=== PATIENT | male | born 1990 | race Caucasian/White ===

== ENCOUNTER 2018-02-03 18:56 | Emergency (ER) | payer MEDICAID ==
[~2018-02-03] VITALS: Ht 180.3 cm; Wt 63.5 kg
[2018-02-03 19:29] VITALS: BP 126/81
== END 2018-02-03 20:48 | disposition home or self-care (01) ==
LOC: ED 18:56
DX: K12.0 Recurrent oral aphthae (principal); K08.89 Other specified disorders of teeth and supporting structures

== ENCOUNTER 2018-03-29 01:58 | Emergency (ER) | payer MEDICAID ==
[~2018-03-29] VITALS: Ht 180.3 cm; Wt 64.1 kg
[2018-03-29 02:05] VITALS: Ht 180.3 cm; Wt 64.1 kg
[2018-03-29 06:47] VITALS: BP 119/56
== END 2018-03-29 08:40 | disposition home or self-care (01) ==
LOC: ED 01:58
DX: S01.511A Laceration without foreign body of lip, initial encounter (principal); Y04.8XXA Assault by other bodily force, initial encounter; Y93.89 Activity, other specified; Y92.89 Other specified places as the place of occurrence of the external cause; Y99.8 Other external cause status
CPT/HCPCS: 90715; J2001

== ENCOUNTER 2018-03-31 17:53 | Emergency (ER) | payer MEDICAID ==
[~2018-03-31] VITALS: Ht 180.3 cm; Wt 64.0 kg
[2018-03-31 18:05] VITALS: BP 131/79; Ht 180.3 cm; Wt 64.0 kg
== END 2018-03-31 18:52 | disposition home or self-care (01) ==
LOC: ED 17:53
DX: S01.511D Laceration without foreign body of lip, subsequent encounter (principal); Y04.0XXD Assault by unarmed brawl or fight, subsequent encounter

== ENCOUNTER 2018-04-13 18:02 | Emergency (ER) | payer MEDICAID ==
[~2018-04-13] VITALS: Ht 182.9 cm; Wt 64.0 kg
[2018-04-13 18:26] VITALS: Ht 182.9 cm; Wt 64.0 kg
[2018-04-13 20:13] VITALS: BP 118/77
== END 2018-04-13 20:13 | disposition home or self-care (01) ==
LOC: ED 18:02
DX: S01.511D Laceration without foreign body of lip, subsequent encounter (principal); X58.XXXD Exposure to other specified factors, subsequent encounter